=== PATIENT | female | born 1955 | race Caucasian/White ===

== ENCOUNTER → 2017-09-16 | Outpatient (CLI) | payer BC ==
[~2017-09-16] MED LIST: ALEN70TA3 PO; MULT-516 PO; PROBIOTIC PO; [UNRECOGNIZED DRUG - OTHER] PO
== END | disposition home or self-care (01) ==
LOC: STAR 13:29
PROVIDERS: ATTEND Orthopaedic Surgery
DX: Z01.818 Encounter for other preprocedural examination (principal); M85.672 Other cyst of bone, left ankle and foot; M25.572 Pain in left ankle and joints of left foot; R94.31 Abnormal electrocardiogram [ECG] [EKG]
CPT/HCPCS: 93005

== ENCOUNTER 2017-09-20 09:10 | Day surgery (SDC) | payer BC ==
[~2017-09-20] VITALS: Ht 152.4 cm; Wt 63.4 kg
[2017-09-20] MEDS ORDERED: LACTATED RINGERS 1,000 ML IV SCH (09:38)
[2017-09-20 10:00] VITALS: BP 144/82
[2017-09-20] MEDS ORDERED: LIDOCAINE-MPF 2% ,5ML ONE (10:25)
[2017-09-20] MEDS ORDERED: FENTANYL PF 100 MCG/2ML ONE (10:25)
[2017-09-20] MEDS ORDERED: MIDAZOLAM 1 MG/ML, 2ML ONE (10:25)
[2017-09-20] MEDS ORDERED: PROPOFOL 10 MG/ML, 20ML ONE ×2 (10:25→11:06)
[2017-09-20] MEDS ORDERED: ROCURONIUM 10 MG/ML,10ML ONE (10:25)
[2017-09-20] MEDS ORDERED: CEFAZOLIN 1,000 MG ONE ×2 (10:25)
[2017-09-20] MEDS ORDERED: BUPIVACAINE/PF 0.25% ONE (10:25)
[2017-09-20] MEDS ORDERED: GLYCOPYRROLATE 0.2MG/1ML, 5ML ONE (11:06)
[2017-09-20] MEDS ORDERED: ONDANSETRON 2MG/ML, 2ML ONE (11:06)
[2017-09-20] MEDS ORDERED: NEOSTIGMINE 1 MG/ML, 10ML ONE (11:06)
[2017-09-20] MEDS ORDERED: DEXAMETHASONE 4 MG/ML, 1ML ONE (11:20)
== END 2017-09-20 14:40 ==
LOC: OUT 09:10
PROVIDERS: ATTEND Orthopaedic Surgery
DX: M85.662 Other cyst of bone, left lower leg (principal); Z88.8 Allergy status to other drugs, medicaments and biological substances
CPT/HCPCS: 27637; 73600; 76001; 88304; C1713; C1762; J0690; J1100; J2250; J2405; J2704; J2710; J3010; J3490; J7120; 88305; 93005